=== PATIENT | male | born 1955 | race Caucasian/White ===

== ENCOUNTER 2016-10-17 10:40 | Emergency (ER) | payer SELFPAY ==
[2016-10-17] MEDS ORDERED: NS 0.9% 1000 ML* 1,000 ML IV ONE (11:27)
[2016-10-17] MEDS ORDERED: guaiFENesin/CODIEN 100MG-10MG* 5 ML UDC PO ONE (11:27)
[2016-10-17] MEDS ORDERED: Dexamethasone IV* 4 MG/ML 1 ML (4 MG) IV SLOW PU ONE (11:27)
[2016-10-17] MEDS ORDERED: Albuterol/Ipratropium NEB.SOL* Albuterol 2.5 MG/Ipratropium 0.5 MG 3 ML INH ONE (11:31)
[2016-10-17 11:57] LABS: Hematocrit 40 % (42-52); Hemoglobin 13.3 g/dl (14.0-18.0); Mean Corpuscular HGB Conc 34 g/dl (31-36); Mean Corpuscular Hemoglobin 30 pg (27-31); Mean Corpuscular Volume 88 fL (80-94); Mean Platelet Volume 8 um3 (7.4-10.4); Red Blood Count 4.49 10^6/ul (4.0-5.4); Red Cell Distribution Width 14 % (10.5-15); White Blood Count 9.5 10^3/ul (3.5-10.8)
[2016-10-17 12:16] LABS: BUN/Creatinine Ratio 15.8 (8-20); Calcium 9.3 mg/dL (8.6-10.3); EGFR African American 83.7 (>60); EGFR Non-African American 65.1 (>60); Globulin 2.9 g/dL (2-4); Potassium 4.3 mmol/L (3.5-5.0); Total Bilirubin 0.4 mg/dL (0.2-1.0); Total Protein 6.9 g/dL (6.4-8.9)
--- NOTE | 2016-10-17 12:26 | RAD ---
HISTORY: Flulike illness, shortness of breath COMPARISONS: None VIEWS: 2: Frontal dual-energy and lateral views of the chest. FINDINGS: CARDIOMEDIASTINAL SILHOUETTE: The cardiomediastinal silhouette is normal. ISIDRA: The isidra are normal. PLEURA: The costophrenic angles are sharp. No pleural abnormalities are noted. LUNG PARENCHYMA: The lungs are clear. ABDOMEN: The upper abdomen is clear. There is no subphrenic gas. BONES AND SOFT TISSUES: No bone or soft tissue abnormalities are noted. OTHER: None. IMPRESSION: NO ACTIVE CARDIOPULMONARY DISEASE.
[2016-10-17 12:33] LABS: C Reactive Protein 19.33 mg/L (< 5.00)
[2016-10-17 13:24] VITALS: BP 111/79
--- NOTE | 2016-10-18 08:17 | ED ---
Influenza-Like Illness - HPI Summary HPI Summary: Patient is a 61yo otherwise healthy M from [facility] who arrived in the [facility] 2 weeks ago and has been feeling "ill" ever since. His sister is translating and states he has been feeling feverish, fatigued with a strong cough with production. Mucous is green and yellow and he feels the majority of the pressure is located in his head with making references to his sinuses. Denies previous sinus infection. He endorses SOB with cough, but not otherwise. Patient is a former smoker, no ETOH or drugs. Patient denies known exposure to TB. His sister states he took Penicillin 500mg twice a day for "a few days" thinking it was a pneumonia. He received this medication from [place] in the [place] Denies flu vaccine and states he has never had anything like this before. Denies neck pain, sick contacts, or other known exposures. Patient is afebrile on arrival to ED but took Tylenol 2 hours ago. Denies daily medication use or any allergies. - History of Current Complaint Chief Complaint: EDFluSymptoms Time Seen by Provider: 10/17/16 10:49 Hx Obtained From: Patient Onset/Duration: Gradual Onset Severity: Moderate Associated Signs & Symptoms: Fever, T Max - 100.5, F/C, Cough, Nasal Congestion , Headache - Risk Factors Influenza Risk Factors: Negative - Allergy/Home Medications Allergies/Adverse Reactions: Allergies Allergy/AdvReac Type Severity Reaction Status Date / Time No Known Allergies Allergy Verified 10/17/16 10:47 PMH/Surg Hx/FS Hx/Imm Hx Previously Healthy: Yes - Immunization History Hx Pertussis Vaccination: No Immunizations Up to Date: Unable to Obtain/Confirm Infectious Disease History: No Infectious Disease History: Reports: Traveled Outside the [place] in Last 30 Days - [facility] - Social History Occupation: Employed Full-time Lives: With Family Alcohol Use: Rare Hx Substance Use: No Substance Use Type: Reports: None Hx Tobacco Use: Yes Smoking Status (MU): Former Smoker Review of Systems Positive: Fever, Chills, Fatigue, Skin Diaphoresis Eyes: Negative Positive: Ear Ache, Nasal Discharge Cardiovascular: Negative Positive: Shortness Of Breath, Cough Gastrointestinal: Negative Positive: no symptoms reported, see HPI Positive: Myalgia Skin: Negative Positive: Headache Psychological: Normal All Other Systems Reviewed And Are Negative: Yes Physical Exam Triage Information Reviewed: Yes Vital Signs On Initial Exam: Initial Vitals Temp Pulse Resp BP Pulse Ox 99.0 F 94 16 121/85 99 10/17/16 10:44 10/17/16 10:44 10/17/16 10:44 10/17/16 10:44 10/17/16 10:44 Vital Signs Reviewed: Yes Appearance: Positive: Well-Appearing, No Pain Distress, Well-Nourished Skin: Positive: Warm, Skin Color Reflects Adequate Perfusion Head/Face: Positive: Normal Head/Face Inspection Eyes: Positive: EOMI, MARTHA, Conjunctiva Clear ENT: Positive: Pharynx normal, Nasal congestion, Nasal drainage, TMs normal Neck: Positive: Nontender, No Lymphadenopathy Respiratory/Lung Sounds: Positive: Breath Sounds Present, Rhonchi Cardiovascular: Positive: RRR Musculoskeletal: Positive: Normal, Strength/ROM Intact Neurological: Positive: Sensory/Motor Intact, Alert, Oriented to Person Place, Time, Speech Normal Psychiatric: Positive: Anxious AVPU Assessment: Alert - [place] Coma Scale Best Eye Response: 4 - Spontaneous Best Motor Response: 6 - Obeys Commands Best Verbal Response: 5 - Oriented Diagnostics - Vital Signs Vital Signs Temp Pulse Resp BP Pulse Ox 10/17/16 13:23 98.9 F 89 16 111/79 10/17/16 12:05 16 10/17/16 11:21 98.8 F 84 18 126/83 97 10/17/16 10:44 99.0 F 94 16 121/85 99 - Laboratory Lab Results: Lab Results 10/17/16 10/17/16 10/17/16 Range/Units 10:21 11:45 11:45 WBC 9.5 (3.5-10.8) 10^3/ul RBC 4.49 (4.0-5.4) 10^6/ul Hgb 13.3 L (14.0-18.0) g/dl Hct 40 L (42-52) % MCV 88 (80-94) fL MCH 30 (27-31) pg MCHC 34 (31-36) g/dl RDW 14 (10.5-15) % Plt Count 203 (150-450) 10^3/ul MPV 8 (7.4-10.4) um3 Neut % (Auto) 67.3 (38-83) % Lymph % (Auto) 18.5 L (25-47) % [place] % (Auto) 8.2 (1-9) % Eos % (Auto) 5.2 (0-6) % Baso % (Auto) 0.8 (0-2) % Absolute Neuts (auto) 6.4 (1.5-7.7) 10^3/ul Absolute Lymphs (auto) 1.8 (1.0-4.8) 10^3/ul Absolute Monos (auto) 0.8 (0-0.8) 10^3/ul Absolute Eos (auto) 0.5 (0-0.6) 10^3/ul Absolute Basos (auto) 0.1 (0-0.2) 10^3/ul Absolute Nucleated RBC 0.01 10^3/ul Nucleated RBC % 0.1 Sodium 136 (133-145) mmol/L Potassium 4.3 (3.5-5.0) mmol/L Chloride 102 (101-111) mmol/L Carbon Dioxide 30 (22-32) mmol/L Anion Gap 4 (2-11) mmol/L BUN 18 (6-24) mg/dL Creatinine 1.14 (0.67-1.17) mg/dL Est GFR ( Amer) 83.7 (>60) Est GFR (Non-Af Amer) 65.1 (>60) BUN/Creatinine Ratio 15.8 (8-20) Glucose 100 (70-100) mg/dL Lactic Acid (0.5-2.0) mmol/L Calcium 9.3 (8.6-10.3) mg/dL Total Bilirubin 0.40 (0.2-1.0) mg/dL AST 13 (13-39) U/L ALT 13 (7-52) U/L Alkaline Phosphatase 60 (34-104) U/L C-Reactive Protein 19.33 H (< 5.00) mg/L Total Protein 6.9 (6.4-8.9) g/dL Albumin 4.0 (3.2-5.2) g/dL Globulin 2.9 (2-4) g/dL Albumin/Globulin Ratio 1.4 (1-3) Influenza A (Rapid) Negative (Negative) Influenza B (Rapid) Negative (Negative) 10/17/16 Range/Units 11:45 WBC (3.5-10.8) 10^3/ul RBC (4.0-5.4) 10^6/ul Hgb (14.0-18.0) g/dl Hct (42-52) % MCV (80-94) fL MCH (27-31) pg MCHC (31-36) g/dl RDW (10.5-15) % Plt Count (150-450) 10^3/ul MPV (7.4-10.4) um3 Neut % (Auto) (38-83) % Lymph % (Auto) (25-47) % [place] % (Auto) (1-9) % Eos % (Auto) (0-6) % Baso % (Auto) (0-2) % Absolute Neuts (auto) (1.5-7.7) 10^3/ul Absolute Lymphs (auto) (1.0-4.8) 10^3/ul Absolute Monos (auto) (0-0.8) 10^3/ul Absolute Eos (auto) (0-0.6) 10^3/ul Absolute Basos (auto) (0-0.2) 10^3/ul Absolute Nucleated RBC 10^3/ul Nucleated RBC % Sodium (133-145) mmol/L Potassium (3.5-5.0) mmol/L Chloride (101-111) mmol/L Carbon Dioxide (22-32) mmol/L Anion Gap (2-11) mmol/L BUN (6-24) mg/dL Creatinine (0.67-1.17) mg/dL Est GFR ( Amer) (>60) Est GFR (Non-Af Amer) (>60) BUN/Creatinine Ratio (8-20) Glucose (70-100) mg/dL Lactic Acid 0.9 (0.5-2.0) mmol/L Calcium (8.6-10.3) mg/dL Total Bilirubin (0.2-1.0) mg/dL AST (13-39) U/L ALT (7-52) U/L Alkaline Phosphatase (34-104) U/L C-Reactive Protein (< 5.00) mg/L Total Protein (6.4-8.9) g/dL Albumin (3.2-5.2) g/dL Globulin (2-4) g/dL Albumin/Globulin Ratio (1-3) Influenza A (Rapid) (Negative) Influenza B (Rapid) (Negative) Result Diagrams: 10/17/16 11:45 10/17/16 11:45 Lab Statement: Any lab studies that have been ordered have been reviewed, and results considered in the medical decision making process. Flu Symptom Course/Dx - Course Course Of Treatment: Influenza negative. Patient is coughing with sputum production on exam. Lungs are rhonchorous with no wheezing. Patient is visibly SOB after coughing. Breathing treatment, mucinex and robitussin with codeine ordered. Patient improved with medications and treatment. Patient encouraged to return if symptoms become worse or fever not reduced with tylenol to below 101. D/t sinus pressure over frontal lobes, but no signs of PNA on xray, will treat for sinusitis with augmentin. Patient experiencing rhonchi and SOB, will give short course of 5 days steroids. Patient agrees. Mucinex encouraged x 5 days. Sister translated and patient OK to be discharged. - Diagnoses Differential Diagnosis/HQI/PQRI: Positive: Bronchitis, Pneumonia, Upper Respiratory Infection Provider Diagnoses: RHINOSINUSITIS Discharge - Discharge Plan Condition: Stable Disposition: HOME Prescriptions: Amoxicillin/Clavulanate TAB* [Augmentin TAB 875*] 875 mg PO BID #20 tab MDD 2 predniSONE TAB* [Deltasone TAB*] 50 mg PO DAILY #5 tab Patient Education Materials: Rhinosinusitis (ED) Print Language: PALAUAN Referrals: Non Staff,Doctor [Primary Care Provider] - Additional Instructions: Take medications as prescribed to you. Please follow up with your primary care physician. Tylenol as needed for temps above 100.5. If any worsening symptoms develop, please come back to Emergency department.
== END 2016-10-17 13:23 | disposition home or self-care (01) ==
LOC: ED 10:40
DX: J32.9 Chronic sinusitis, unspecified (principal); H92.09 Otalgia, unspecified ear; R50.9 Fever, unspecified; R05 Cough; R09.81 Nasal congestion; R51 Headache; Z87.891 Personal history of nicotine dependence
CPT/HCPCS: 36415; 71020; 80053; 83605; 85025; 86140; 86703; 87502; 96374; 99282; A9270-GY; J1100

== ENCOUNTER 2016-11-19 19:36 | Observation (INO) | payer SELFPAY ==
[2016-11-19 19:59] LABS: Hematocrit 38 % (42-52); Hemoglobin 12.5 g/dl (14.0-18.0); Mean Corpuscular HGB Conc 33 g/dl (31-36); Mean Corpuscular Hemoglobin 29 pg (27-31); Mean Corpuscular Volume 89 fL (80-94); Mean Platelet Volume 8 um3 (7.4-10.4); Red Blood Count 4.27 10^6/ul (4.0-5.4); Red Cell Distribution Width 14 % (10.5-15); White Blood Count 7.7 10^3/ul (3.5-10.8)
[2016-11-19] MEDS ORDERED: NS 0.9% 1000 ML* 1,000 ML IV ONE (19:59)
[2016-11-19 20:17] LABS: Albumin 3.8 g/dL (3.2-5.2); BUN/Creatinine Ratio 12.4 (8-20); Calcium 8.3 mg/dL (8.6-10.3); EGFR African American 63.4 (>60); EGFR Non-African American 49.3 (>60); Globulin 2.4 g/dL (2-4); Total Bilirubin 0.3 mg/dL (0.2-1.0); Total Protein 6.2 g/dL (6.4-8.9)
[2016-11-19 20:25] LABS: Potassium 3.8 mmol/L (3.5-5.0)
[2016-11-19] MEDS ORDERED: Ondansetron INJ* 2 MG/ML VIAL IV ONE (20:38)
[2016-11-19] MEDS ORDERED: Aspirin TAB* 325 MG PO ONE (20:53)
--- NOTE | 2016-11-19 20:53 | ED ---
Jess Metzger Rebecca, scribed for Anneliese Vivar MD on 11/19/16 at 1955 . HPI Chest Pain - HPI Summary HPI Summary: Pt is a 61 y/o M who presents to ED, accompanied by sister, acting as a etiquette coach, with a CC of CP. Pain began suddenly approximately 1 hour [employer] (1800 ) and has been constant and improving since onset. Initially pain was ranked as 10/10, and now pain is 5/10. Pain is in the midsternal region without radiation and is characterized as sharp. Sx aggravated and alleviated by nothing. Additionally c/o dizziness and diaphoresis at onset of pain. Additionally c/o fever. Denies vomiting. Sister notes that pain began 10-15 minutes after the pt had eaten a meal of tuna and Coca-Cola. Pt is currently on Abx to treat cough, which has not been improving sx. Pt is visiting from the [facility]. His last trip by plane was approximately 3 months ago. Denies any recent travel. SHx former smoker (quit >10 years ago). - History of Current Complaint Chief Complaint: EDChestPainROMI Hx Obtained From: Patient, Family/International Travel Consultant - Sister - acting as an staffing administrator Onset/Duration: Started Hours Ago, Still Present Time of Onset: 18:00 Timing: Constant Initial Severity: Severe - 10/10 Current Severity: Moderate Pain Intensity: 5 Pain Scale Used: 0-10 Numeric Chest Pain Location: Mid Sternal Chest Pain Radiates: No Character: Sharp/Stabbing Aggravating Factor(s): Nothing Alleviating Factor(s): Nothing Associated Signs and Symptoms: Positive: Dizziness, Fever, Diaphoresis. Negative: Vomiting - Allergy/Home Medications Allergies/Adverse Reactions: Allergies Allergy/AdvReac Type Severity Reaction Status Date / Time No Known Allergies Allergy Verified 10/17/16 10:47 PMH/Surg Hx/FS Hx/Imm Hx Endocrine/Hematology History: Denies: Hx Diabetes Cardiovascular History: Denies: Hx Deep Vein Thrombosis, Hx Hypercholesterolemia, Hx Hypertension Infectious Disease History: Denies: Traveled Outside the [place] in Last 30 Days - Family History Known Family History: Positive: Hypertension - Social History Alcohol Use: Rare Hx Substance Use: No Substance Use Type: Reports: None Hx Tobacco Use: Yes Smoking Status (MU): Former Smoker Review of Systems Positive: Fever, Skin Diaphoresis Positive: Chest Pain Negative: Vomiting Neurological: Other - Dizziness All Other Systems Reviewed And Are Negative: Yes Physical Exam Triage Information Reviewed: Yes Vital Signs On Initial Exam: Initial Vitals Temp Pulse Resp BP Pulse Ox 99.1 F 113 19 134/93 99 11/19/16 20:22 11/19/16 20:22 11/19/16 20:22 11/19/16 20:22 11/19/16 20:22 Vital Signs Reviewed: Yes Appearance: Positive: Well-Appearing, No Pain Distress Skin: Positive: Warm, Skin Color Reflects Adequate Perfusion, Dry Eyes: Positive: EOMI, MARTHA Neck: Positive: Supple, Nontender Respiratory/Lung Sounds: Positive: Clear to Auscultation, Breath Sounds Present. Negative: Rales, Rhonchi, Wheezes Cardiovascular: Positive: Tachycardia, Other - No gallop. Negative: Murmur, Rub Abdomen Description: Positive: Nontender, Soft, Other: - No rebound. Negative: Distended, Guarding Bowel Sounds: Positive: Present Musculoskeletal: Positive: Strength/ROM Intact. Negative: Edema Left, Edema Right Neurological: Positive: Sensory/Motor Intact, Alert, Oriented to Person Place, Time, CN Intact II-III Psychiatric: Positive: Affect/Mood Appropriate Diagnostics - Vital Signs Vital Signs Temp Pulse Resp BP Pulse Ox 11/19/16 20:38 110 19 99 11/19/16 20:37 122/82 11/19/16 20:35 99.1 F 116 17 112/68 99 11/19/16 20:22 99.1 F 113 19 134/93 99 - Laboratory Lab Results: Lab Results 11/19/16 11/19/16 11/19/16 Range/Units 19:52 19:52 19:52 WBC 7.7 (3.5-10.8) 10^3/ul RBC 4.27 (4.0-5.4) 10^6/ul Hgb 12.5 L (14.0-18.0) g/dl Hct 38 L (42-52) % MCV 89 (80-94) fL MCH 29 (27-31) pg MCHC 33 (31-36) g/dl RDW 14 (10.5-15) % Plt Count 239 (150-450) 10^3/ul MPV 8 (7.4-10.4) um3 Neut % (Auto) 56.4 (38-83) % Lymph % (Auto) 32.6 (25-47) % Clay % (Auto) 8.7 (1-9) % Eos % (Auto) 1.9 (0-6) % Baso % (Auto) 0.4 (0-2) % Absolute Neuts (auto) 4.3 (1.5-7.7) 10^3/ul Absolute Lymphs (auto) 2.5 (1.0-4.8) 10^3/ul Absolute Monos (auto) 0.7 (0-0.8) 10^3/ul Absolute Eos (auto) 0.1 (0-0.6) 10^3/ul Absolute Basos (auto) 0 (0-0.2) 10^3/ul Absolute Nucleated RBC 0.01 10^3/ul Nucleated RBC % 0.1 INR (Anticoag Therapy) 0.99 (0.89-1.11) APTT 28.1 (26.0-36.3) seconds Sodium 138 (133-145) mmol/L Potassium 3.8 (3.5-5.0) mmol/L Chloride 106 (101-111) mmol/L Carbon Dioxide 24 (22-32) mmol/L Anion Gap 8 (2-11) mmol/L BUN 18 (6-24) mg/dL Creatinine 1.45 H (0.67-1.17) mg/dL Est GFR ( Amer) 63.4 (>60) Est GFR (Non-Af Amer) 49.3 (>60) BUN/Creatinine Ratio 12.4 (8-20) Glucose 126 H (70-100) mg/dL Lactic Acid (0.5-2.0) mmol/L Calcium 8.3 L (8.6-10.3) mg/dL Total Bilirubin 0.30 (0.2-1.0) mg/dL AST 19 (13-39) U/L ALT 12 (7-52) U/L Alkaline Phosphatase 49 (34-104) U/L Troponin I 0.00 (<0.04) ng/mL Total Protein 6.2 L (6.4-8.9) g/dL Albumin 3.8 (3.2-5.2) g/dL Globulin 2.4 (2-4) g/dL Albumin/Globulin Ratio 1.6 (1-3) 05/18/17 Range/Units 19:52 WBC (3.5-10.8) 10^3/ul RBC (4.0-5.4) 10^6/ul Hgb (14.0-18.0) g/dl Hct (42-52) % MCV (80-94) fL MCH (27-31) pg MCHC (31-36) g/dl RDW (10.5-15) % Plt Count (150-450) 10^3/ul MPV (7.4-10.4) um3 Neut % (Auto) (38-83) % Lymph % (Auto) (25-47) % Clay % (Auto) (1-9) % Eos % (Auto) (0-6) % Baso % (Auto) (0-2) % Absolute Neuts (auto) (1.5-7.7) 10^3/ul Absolute Lymphs (auto) (1.0-4.8) 10^3/ul Absolute Monos (auto) (0-0.8) 10^3/ul Absolute Eos (auto) (0-0.6) 10^3/ul Absolute Basos (auto) (0-0.2) 10^3/ul Absolute Nucleated RBC 10^3/ul Nucleated RBC % INR (Anticoag Therapy) (0.89-1.11) APTT (26.0-36.3) seconds Sodium (133-145) mmol/L Potassium (3.5-5.0) mmol/L Chloride (101-111) mmol/L Carbon Dioxide (22-32) mmol/L Anion Gap (2-11) mmol/L BUN (6-24) mg/dL Creatinine (0.67-1.17) mg/dL Est GFR ( Amer) (>60) Est GFR (Non-Af Amer) (>60) BUN/Creatinine Ratio (8-20) Glucose (70-100) mg/dL Lactic Acid 1.7 (0.5-2.0) mmol/L Calcium (8.6-10.3) mg/dL Total Bilirubin (0.2-1.0) mg/dL AST (13-39) U/L ALT (7-52) U/L Alkaline Phosphatase (34-104) U/L Troponin I (<0.04) ng/mL Total Protein (6.4-8.9) g/dL Albumin (3.2-5.2) g/dL Globulin (2-4) g/dL Albumin/Globulin Ratio (1-3) Result Diagrams: 11/19/16 19:52 11/19/16 19:52 Lab Statement: Any lab studies that have been ordered have been reviewed, and results considered in the medical decision making process. - Radiology CXR Xray Interpretation: No Acute Changes Radiology Interpretation Completed By: Radiologist - EKG 1932 Cardiac Rate: Tachycardia - 124 bpm EKG Rhythm: Sinus Tachycardia EKG Interpretation: No q waves, no ST elevations Re-Evaluation - Re-Evaluation First Eval Re-Evaluation Time: 20:49 Change: Worse Comment: Pt is not improving, he is now c/o nausea as well. Discussed admission of the pt with the family and they agree. They also express concerns about a smell in his car and would like to r/o CO poisoning. Chest Pain Course/Dx - Course Course Of Treatment: 61 yo male with onset of cp this evening with elevated hr. pt is slovak speaking her with large amt of family members who all speak serbian. he has been treated recently with abx for uri, labs suprisingly neg, adding ddimer (no real risk factors) and a carbon monoxide level (family now mentions smelling gas in his car). Pt care discussed with candida. - Diagnoses Provider Diagnoses: Chest pain - Provider Notifications Discussed Care Of Patient With: Dr. Hernandez, hospitalist, who accepts pt for admission. Time Discussed With Above Provider: 20:45 Discharge - Discharge Plan Condition: Good Disposition: ADMITTED TO [facility] Referrals: Non Staff,Doctor [Primary Care Provider] - The documentation as recorded by the Jess diallo Rebecca accurately reflects the service I personally performed and the decisions made by me, Anneliese Vivar MD.
--- NOTE | 2016-11-19 21:03 | RAD ---
Indication: Chest pain. Single frontal view of the chest performed at 1957 hours was reviewed. Comparison is made with previous exam dated October 17, 2016. No mediastinal shift is noted. Heart is of normal size and configuration. Lung eden appear clear. IMPRESSION: NO ACTIVE CARDIOPULMONARY DISEASE IS NOTED.
[2016-11-19] MEDS ORDERED: NS 0.9% 1000 ML* 1,000 ML IV SCH (21:45)
[2016-11-19] MEDS ORDERED: Ondansetron INJ* 2 MG/ML VIAL IV PRN (22:09)
[2016-11-19] MEDS: Heparin VIAL(*) 5000 UNITS/ML VIAL (FIVE THOUSAND) SUBCUT SCH (23:51)
--- NOTE | 2016-11-20 01:19 | HP ---
HISTORY AND PHYSICAL: DATE OF ADMISSION: 11/19/16 PRIMARY CARE PROVIDER: None. ATTENDING PHYSICIAN: Ramses Hernandez MD *(dictated by Demetria Fung NP) CHIEF COMPLAINT: Chest pain with associated nausea and dizziness. HISTORY OF PRESENT ILLNESS: Mr. Bert Salmeron is a 61-year-old male with past medical history significant for back problems who presented to the emergency room with complaints of sudden onset of chest discomfort starting at approximately 6 p.m. today. It is to note that the patient is from the [place] and does not speak Hebrew and his family members in the room act as translators for him. He has been here for approximately 3 months and denies any recent travel. It is to note that approximately a month ago, the patient was seen in the emergency room and diagnosed with an upper respiratory infection. He was placed on steroids and antibiotics and his family states that he has been improving, but still struggling with that illness. The patient states that he had a constant, sharp pain on the left side of his chest that had decreased from 10/10 to a 5/10 at the time of evaluation in the emergency room. The patient found nothing that aggravated or alleviated this discomfort initially. The patient was also having dizziness and diaphoresis at the onset of the pain. Denies any fever, chills, shortness of breath, or complaints of urinary symptoms. The patient reports not drinking much water, but has been eating well. According to the patient's sister, the pain started after he had eaten tuna with mayonnaise and Coca-Cola. The patient also reports having numbness in his feet and hands, bilateral. He reports never having any previous symptoms similar to these symptoms. While in the emergency room, the patient had labs that were significant for D- dimer of less than 200. He is noted to be anemic with a hemoglobin of 12.5. This is down from his previous labs in October of 13.3. His hematocrit is 38, down from 40 one month ago. The rest of his CBC is within normal limits. The patient had a carbon monoxide screen that was less than 3.5. His chemistry was remarkable for acute kidney injury with a creatinine of 1.45, a glucose of 126. His initial troponin is 0.00. The patient had an EKG showing a sinus tachycardia with a rate of 124. There were no Q waves or ST elevations or signs of acute ischemia noted. The patient had a chest x-ray showing no acute cardiopulmonary disease. He received aspirin. The patient states that "he feels like he has a hangover" and states that this is why he is moaning during his examination. He reports that his chest pain has resolved. The hospitalists were asked to evaluate the patient for admission. PAST MEDICAL HISTORY: Back problems. PAST SURGICAL HISTORY: Back surgery. HOME MEDICATIONS: Include: 1. Fish oil 1 tablet oral daily. 2. Cough medicine as needed. ALLERGIES: No known drug allergies. FAMILY HISTORY: The patient's grandparents, father, and mother had a history of heart disease. The patient has a brother with a history of diabetes mellitus. The patient's mother had a history of breast and lung cancer. Cousins with history of leukemia. SOCIAL HISTORY: The patient quit smoking approximately 10 years ago. The family is unclear of the details. The patient drinks anywhere from reportedly a few times a week 1 to 2 drinks with dinner to 3 to 4 drinks daily. It is unclear exactly how much the patient is drinking. The patient again is here visiting from [place] [facility] [place]. The patient's sister, Jenna Noel, will be his surrogate decision maker in the event that he is unable to make decisions for himself. REVIEW OF SYSTEMS: I performed a 14-point review of systems. All the pertinent positives and negatives are mentioned in the history of present illness. The remaining review of systems is negative. PHYSICAL EXAMINATION GENERAL APPEARANCE: The patient is sitting on the stretcher with his eyes closed. He appears to be in no acute distress, although he is making moaning sounds. VITAL SIGNS: Temperature 99.1, heart rate 96, respiratory rate 16, O2 sat 95% on 2 L via nasal cannula, blood pressure 97/65. HEENT: Normocephalic, atraumatic. Pupils are equal and reactive to light. Extraocular movements are intact. RESPIRATORY: There is no accessory muscle use and the lungs are clear to auscultation, bilateral. CARDIOVASCULAR: Regular rate and rhythm. S1, S2 present. There are murmurs, rubs, or gallops heard. ABDOMEN: Soft, nontender, large. There are bowel sounds present x4. EXTREMITIES: There is no lower extremity edema. DP and PT pulses are 2+ and symmetric. MUSCULOSKELETAL: There is no clubbing or cyanosis noted. The patient exhibits good strength in all extremities. NEUROLOGICAL: The patient is alert and oriented x4. PSYCHOLOGICAL: The patient is calm and cooperative. SKIN: There are no rashes or abnormalities. DIAGNOSTIC STUDIES/LABORATORY DATA: Sodium 138, potassium 3.8, chloride 106, CO2 24, BUN 18, creatinine 1.45, glucose 126. Troponin 0.00. Carbon monoxide screen less than 3.5. D-dimer less than 200. White blood cell count 7.7, hemoglobin 12.5, hematocrit 38. EKG shows a sinus tachycardia with a rate of 124. There is no ST elevation or acute signs of ischemia. Chest x-ray from today, radiologist's impression: No cardiopulmonary disease. IMPRESSION: Mr. Betr Salmeron is a 61-year-old male with no significant past medical history who presented to the emergency room with complaints of chest discomfort and dizziness. He will be admitted as an observation to rule out acute coronary syndrome. ASSESSMENT AND PLAN: 1. Chest pain. The patient will be monitored on telemetry. We will trend his troponins. We will repeat an EKG in the morning. If the patient does in fact rule out for acute coronary syndrome, we will get an exercise nuclear stress test in the morning. We will check a fasting lipid panel in the morning and hemoglobin A1c. The patient already received a dose of aspirin while in the emergency room. At this time, the patient's chest pain has resolved. 2. Acute kidney injury. I suspect the patient is dehydrated. We will give him additional liter of normal saline and recheck his labs in the morning. 3. Dizziness. Again, I suspect this could be related to the patient being dehydrated. We will give him some IV fluids and see how he feels in the morning. He has no neurological deficits or nystagmus. 4. Fluids, electrolytes, and nutrition. The patient will be on a heart healthy diet. He will be n.p.o. after midnight for a stress test in the morning. 5. Code status. Full code. 6. DVT prophylaxis. The patient is a high risk and will have subcu heparin. 7. Disposition: The patient will be admitted as an observation. TIME SPENT: Time for this admission was 60 minutes, 35 minutes were spent face- to- face with the patient and family discussing medications, past medical history, and events leading up to his arrival today and performing the physical examination. The case has been reviewed with the attending, Dr. Hernandez, who agrees with the plan of care. Reviewed by THERESA AGUILA 11/21/16 1630 [id number]/[facility] #: [id number] MTDKasandra
[2016-11-20] MEDS: Heparin VIAL(*) 5000 UNITS/ML VIAL (FIVE THOUSAND) SUBCUT SCH (05:34)
[2016-11-20 07:08] LABS: Hematocrit 35 % (42-52); Hemoglobin 11.7 g/dl (14.0-18.0); Mean Corpuscular HGB Conc 34 g/dl (31-36); Mean Corpuscular Hemoglobin 30 pg (27-31); Mean Corpuscular Volume 88 fL (80-94); Mean Platelet Volume 8 um3 (7.4-10.4); Red Blood Count 3.91 10^6/ul (4.0-5.4); Red Cell Distribution Width 14 % (10.5-15); White Blood Count 9.3 10^3/ul (3.5-10.8)
[2016-11-20 07:09] LABS: Add Diff/Slide Review? Slide Review Added; Comments Flag Yes
[2016-11-20 07:26] LABS: BUN/Creatinine Ratio 14.1 (8-20); EGFR African American 73.2 (>60); EGFR Non-African American 56.9 (>60); HDL Cholesterol 37.4 mg/dL; Potassium 3.7 mmol/L (3.5-5.0)
[2016-11-20 12:24] VITALS: BP 93/66
--- NOTE | 2016-11-23 08:11 | PN ---
Hospitalist Progress Note . HOSPITALIST DISCHARGE NOTE: See dc instructions and summary by me. Patient stable for dc dc instructions reviewed with the patient at the bedside. DC patient home today.
--- NOTE | 2016-11-25 07:49 | DS ---
DISCHARGE SUMMARY: DATE OF ADMISSION: 11/19/16 DATE OF DISCHARGE: 11/20/16 STATUS DURING HOSPITALIZATION: Observation. PRIMARY CARE PHYSICIAN: None. PRINCIPAL DISCHARGE DIAGNOSIS: Chest pain with nausea and dizziness/negative/ low- risk exercise stress test. SECONDARY DIAGNOSIS: Back pain. DISCHARGE MEDICATION REGIMEN: Aspirin 81 mg by mouth daily. HISTORY OF PRESENT ILLNESS AND HOSPITAL COURSE: Please see the H and P by nurse practitioner, Demetria Hendrix. In brief, Mr. Bert Salmeron is a 61-year- old gentleman with no cardiac past medical history, who complains of a sudden onset chest discomfort at 6 p.m. on the day of admission. The patient is [place] from the [place] and does not speak [place], but family members were present to translate. The patient denied any recent travel. About a month ago, he had an upper respiratory infection and was on steroids and antibiotics and his family states he has been improving but struggling with that illness. The pain was constant, sharp, and left-sided. It was originally 10/10, but decreased to 5/10. During his evaluation in the emergency room, there was nothing that aggravated or alleviated this discomfort initially. The patient had pain after eating sandwich with [employer]. The patient also reported numbness in hands and feet bilaterally suggesting perhaps an anxiety component to this presentation. The patient's D- dimer was less than 200 and so a PE workup was not pursued. The patient had generally unremarkable other labs and his EKG was sinus tach at 124, but no ST or T- wave abnormalities. The chest x-ray was clear and the patient was placed on observation status for ongoing cardiac evaluation including telemetry monitoring , repeat cardiac enzymes, and a stress test. The cardiac enzymes and telemetry were unremarkable and his vitals were stable. The patient proceeded with a stress test, which was rated low risk by ACC/AHA 2002 criteria. The patient is being discharged in stable condition. He can come back to the emergency room if he has any worrisome symptoms including but not limited to chest pain, shortness of breath, lightheadedness, or any other worrisome symptoms and he said he will comply. His family was present for these instructions. TIME SPENT: Total time taken to discharge Ms. Bert Salmeron was 40 minutes, greater than half the time was spent going over the discharge instructions and communicating the return to hospital instructions to the patient and answering questions by his family. [id number] #: [id number] BOD
== END 2016-11-20 14:30 | disposition home or self-care (01) ==
LOC: ED 19:36 → MEDTELE 21:36
PROVIDERS: ADMIT Hospitalist; ATTEND Internal Medicine
DX: R07.9 Chest pain, unspecified (principal); R42 Dizziness and giddiness; R11.0 Nausea; N17.9 Acute kidney failure, unspecified; R06.02 Shortness of breath; Z87.891 Personal history of nicotine dependence; R00.0 Tachycardia, unspecified; Z79.82 Long term (current) use of aspirin; Z79.899 Other long term (current) drug therapy
CPT/HCPCS: 36415; 71010; 80048; 80053; 80061; 82375; 83036; 83605; 84484; 85025; 85379; 85610; 85730; 87040; 93005; 93017; 94760; 96361; 96372; 96374; 99283; G0378; J1644; J2405